=== PATIENT | male | born 1980 | race Caucasian/White ===

== ENCOUNTER 2018-05-24 11:25 | Emergency (ER) | payer OTHER ==
[~2018-05-24] VITALS: Wt 108.3 kg
[~2018-05-24 11:25] MED LIST: CYCL-117 PO; IBUP-1982 PO; LORA-408
[2018-05-24 11:33] VITALS: BP 154/81; PULSE 87; RESP 18
[2018-05-24] MEDS ORDERED: PSEU-79 PO (13:45)
[2018-05-24] MEDS ORDERED: NAPR-985 PO (13:45)
[2018-05-24] MEDS ORDERED: AMOX1TAB10 PO (13:45)
--- NOTE | 2018-05-24 14:26 | ERD ---
ER Documentation Chief Complaint Chief Complaint right ear pain since last night HPI 38-year-old male presenting with complaints of right ear pain times 1 day. Patient states that he feels a sharp stabbing pain in his right ear has had a mild runny nose and sore throat. Denies fever. He denies any dental pain. He has no pain with chewing. Has not taken medications for pain. Denies medical problems. NKDA. Surgical history denies. Social history denies ROS All systems reviewed and are negative except as per history of present illness. Medications Home Meds Active Scripts Pseudoephedrine Hcl* (Suphedrin*) 30 Mg Tablet, 30 MG PO Q6 PRN for CONGESTION, #30 TAB Prov:DORIS PURI PA-C 05/24/18 Amoxicillin/Potassium Clav (Amox-Clav 875-125 mg Tablet) 875-125 mg Tab, 1 TAB PO BID for 7 Days, #14 TAB Prov:DORIS PURI PA-C 05/24/18 Naproxen* (Naprosyn*) 500 Mg Tablet, 500 MG PO BID PRN for PAIN AND/OR INFLAMMATION, #30 TAB Prov:DORIS PURI PA-C 05/24/18 Reported Medications Ibuprofen* (Ibuprofen*) 200 Mg Capsule, 200 MG PO DAILY PRN 08/14/12 Cyclobenzaprine Hcl (Flexeril) 10 Mg Tablet, 10 MG PO DAILY PRN 08/14/12 Lorazepam (Ativan) 1 Mg Tablet 04/05/12 Allergies Allergies: Coded Allergies: No Known Allergy (Unverified , 12/07/12) PMhx/Soc Medical and Surgical Hx: pt denies Surgical Hx History of Surgery: No Anesthesia Reaction: No Hx Neurological Disorder: No Hx Respiratory Disorders: No Hx Cardiac Disorders: No Hx Psychiatric Problems: No Hx Miscellaneous Medical Probl: Yes (ANXIETY) Hx Alcohol Use: Yes (occ) Hx Substance Use: No Hx Tobacco Use: No Smoking Status: Never smoker FmHx Family History: No diabetes, No coronary disease, No other Physical Exam Vitals Vital Signs Date Temp Pulse Resp B/P (MAP) Pulse Ox O2 O2 Flow FiO2 Time Delivery Rate 05/24/18 97.5 87 18 154/81 98 11:33 (105) Physical Exam GENERAL: The patient is well-appearing, well-nourished, in no acute distress HEENT: Atraumatic. Conjunctivae are pink. Pupils equal, round, and reactive to light. There is no scleral icterus. Tympanic membranes erythematous to the right side with mild bulging.. Oropharynx clear. NECK: C-spine is soft and supple. There is no meningismus. There is no cervical lymphadenopathy. CHEST: Clear to auscultation bilaterally. There are no rales, wheezes or rhonchi. HEART: Regular rate and rhythm. No murmurs, clicks, rubs or gallops. Procedures/MDM MDM: 38-year-old male presenting with findings consistent with barotrauma of the right ear. There is questionable purulence behind the eardrum and I will treat with antibiotics. I have low suspicion for perforation. Patient will be discharged with supportive medications and told to follow-up with primary care within 1-2 days for close evaluation. Patient is told symptoms change or worsen to return immediately to the ER. All questions answered at discharge Departure Diagnosis: Primary Impression: Right ear pain Condition: Stable Patient Instructions: Ear Barotrauma Referrals: [facility] YOU HAVE RECEIVED A MEDICAL SCREENING EXAM AND THE RESULTS INDICATE THAT YOU DO NOT HAVE A CONDITION THAT REQUIRES URGENT TREATMENT IN THE EMERGENCY DEPARTMENT. FURTHER EVALUATION AND TREATMENT OF YOUR CONDITION CAN WAIT UNTIL YOU ARE SEEN IN YOUR DOCTORS OFFICE WITHIN THE NEXT 1-2 DAYS. IT IS YOUR RESPONSIBILITY TO MAKE AN APPOINTMENT FOR FOLOW-UP CARE. IF YOU HAVE A PRIMARY DOCTOR --you should call your primary doctor and schedule an appointment IF YOU DO NOT HAVE A PRIMARY DOCTOR YOU CAN CALL OUR PHYSICIAN REFERRAL HOTLINE AT IF YOU CAN NOT AFFORD TO SEE A PHYSICIAN YOU CAN CHOSE FROM THE FOLLOWING [facility] [id number] [facility] [address] [facility] [facility] [address] [facility] [id number] [facility]. [facility] [address] [facility]. [address] Additional Instructions: FOLLOW UP WITH YOUR PRIMARY CARE PHYSICIAN TOMORROW.Return to this facility if you are not improving as expected. DORIS PURI PA-C May 24, 2018 14:26
== END 2018-05-24 14:00 | disposition home or self-care (01) ==
LOC: FTE 11:25
DX: H92.01 Otalgia, right ear (principal)
CPT/HCPCS: 99283